=== PATIENT | male | born 1995 | race African-American/Black ===

== ENCOUNTER 2017-03-27 04:07 | Emergency (ER) | payer SELFPAY ==
[~2017-03-27] VITALS: Ht 175.3 cm; Wt 65.0 kg
[2017-03-27 04:09] VITALS: BP 142/70; PULSE 62; RESP 18; TEMP 97.7; O2SAT 99
[2017-03-27] MEDS ORDERED: SODIUM CHLOR 0.9% 1000 ML INJ 1,000 ML IV ONE (04:21)
--- NOTE | 2017-03-27 04:25 | PD ---
HPI Chief Complaint: GI Complaint Time Seen by Provider: 04:21 Travel History International Travel<30 days: No Contact w/Intl Traveler<30days: No Traveled to known affect area: No History of Present Illness HPI 21-year-old male presents to the emergency department complaint of nausea vomiting and abdominal discomfort associated with emesis. No hematemesis or coffee-ground emesis nonbilious emesis. Patient states he ate a large meal at dinnertime and shortly thereafter did not feel well and vomited a large amount of food and then subsequently has had multiple episodes of vomiting to her now he is having dry heaves and vomiting saliva. Patient also took over-the- counter medicine for nausea vomiting that is red in color but does not know of any blood that he has actually vomited. No coffee-ground emesis. Patient's had no fever or chills. Patient denies abdominal pain at this time. Patient had one loose stool. Her friend ate dinner with him and had similar food but did not eat the exact food that he ate. Otherwise no history of dietary indiscretion well water ingestion or foreign travel. Patient denies any chronic medical problems. Patient has undergone inguinal herniorrhaphy in the past and is child was treated for intussusception. Immunizations are current. [facility] Past Medical History Narrative Medical Intussusception, inguinal herniorrhaphy, occasional alcohol use; nursing notes reviewed Medical History: Denies Significant Hx Diminished Hearing: No Tetanus Vaccination: Unknown Influenza Vaccination: No Past Surgical History Other Surgery: Yes (abd hernia repair) Social History Alcohol Use: Yes (occasional) Tobacco Use: No Substance Use: No Allergies-Medications (Allergen,Severity, Reaction): Coded Allergies: No Known Allergies (Unverified , 03/27/17) Narrative Medication [id number] medicine for nausea vomiting Review of Systems Except as stated in HPI: all other systems reviewed are Neg General / Constitutional: No: Fever, Chills HENT: No: Congestion Cardiovascular: No: Chest Pain or Discomfort Respiratory: No: Shortness of Breath Gastrointestinal: Positive: Nausea, Vomiting (multiple), Diarrhea (x1), Abdominal Pain (Discomfort with vomiting otherwise no abdominal pain), No: Hematemesis, Hematochezia Genitourinary: No: Dysuria, Flank Pain Musculoskeletal: No: Myalgias, Arthralgias Skin: No Rash Neurologic: No: Weakness, Dizziness, Syncope ([place]) Psychiatric: Positive: Anxiety Hematologic/Lymphatic: No: Easy Bruising Physical Exam Narrative GENERAL: Well-developed well-nourished male no acute distress no respiratory distress. SKIN: Warm and dry. HEAD: Normocephalic. EYES: No scleral icterus. No injection or drainage. NECK: Supple, trachea midline. No JVD or lymphadenopathy. CARDIOVASCULAR: Regular rate and rhythm without murmurs, gallops, or rubs. RESPIRATORY: Breath sounds equal bilaterally. No accessory muscle use. GASTROINTESTINAL: Abdomen soft, non-tender, nondistended. MUSCULOSKELETAL: No cyanosis, or edema. BACK: Nontender without obvious deformity. No CVA tenderness. Data Data Last Documented VS Vital Signs Date Time Temp Pulse Resp B/P (MAP) Pulse Ox O2 Delivery O2 Flow Rate FiO2 03/27/17 05:43 66 16 128/68 (88) 99 Room Air 03/27/17 04:09 97.7 Orders Orders Complete Blood Count With Diff (03/27/17 04:21) Comprehensive Metabolic Panel (03/27/17 04:21) Lipase (03/27/17 04:21) Iv Access Insert/Monitor (03/27/17 04:21) Oximetry (03/27/17 04:21) Ondansetron Inj (Zofran Inj) (03/27/17 04:30) Sodium Chlor 0.9% 1000 Ml Inj (Ns 1000 M (03/27/17 04:21) Labs Laboratory Tests Test 03/27/17 04:30 White Blood Count 10.7 TH/MM3 Red Blood Count 5.56 MIL/MM3 Hemoglobin 14.9 GM/DL Hematocrit 44.5 % Mean Corpuscular Volume 80.1 FL Mean Corpuscular Hemoglobin 26.9 PG Mean Corpuscular Hemoglobin Concent 33.5 % Red Cell Distribution Width 13.2 % Platelet Count 138 TH/MM3 Mean Platelet Volume 11.3 FL Neutrophils (%) (Auto) 71.8 % Lymphocytes (%) (Auto) 20.7 % Monocytes (%) (Auto) 6.4 % Eosinophils (%) (Auto) 0.8 % Basophils (%) (Auto) 0.3 % Neutrophils # (Auto) 7.7 TH/MM3 Lymphocytes # (Auto) 2.2 TH/MM3 Monocytes # (Auto) 0.7 TH/MM3 Eosinophils # (Auto) 0.1 TH/MM3 Basophils # (Auto) 0.0 TH/MM3 CBC Comment DIFF FINAL Differential Comment Blood Urea Nitrogen 16 MG/DL Creatinine 1.01 MG/DL Random Glucose 102 MG/DL Total Protein 7.7 GM/DL Albumin 4.4 GM/DL Calcium Level 8.9 MG/DL Alkaline Phosphatase 83 U/L Aspartate Amino Transf (AST/SGOT) 18 U/L Alanine Aminotransferase (ALT/SGPT) 26 U/L Total Bilirubin 0.4 MG/DL Sodium Level 141 MEQ/L Potassium Level 3.9 MEQ/L Chloride Level 106 MEQ/L Carbon Dioxide Level 27.7 MEQ/L Anion Gap 7 MEQ/L Estimat Glomerular Filtration Rate 113 ML/MIN Lipase 144 U/L MDM Medical Decision Making Medical Screen Exam Complete: Yes Emergency Medical Condition: Yes Medical Record Reviewed: Yes Interpretation(s) CBC & BMP Diagram 03/27/17 04:30 Total Protein 7.7, Albumin 4.4, Calcium Level 8.9, Alkaline Phosphatase 83, Aspartate Amino Transf (AST/SGOT) 18, Alanine Aminotransferase (ALT/SGPT) 26, Total Bilirubin 0.4 Vital Signs Date Time Temp Pulse Resp B/P (MAP) Pulse Ox O2 Delivery O2 Flow Rate FiO2 03/27/17 05:43 66 16 128/68 (88) 99 Room Air 03/27/17 04:09 97.7 62 18 142/70 (94) 99 Differential Diagnosis Vomiting, foodborne illness, gastroenteritis, dehydration, electrolyte disturbance, atypical biliary colic, gastritis, peptic ulcer disease, colitis, atypical appendicitis Narrative Course IV access obtained patient administered 1 L normal saline along with Zofran 4 mg IV Patient feeling clinically improved desirous of oral hydration trial At 6:15 AM patient feels well tolerating oral hydration well and stable for outpatient management and advise are grossly normal range patient will be given prescription for Zofran and encouraged to follow clear liquid diet for next 1224 hrs. and advance her as tolerated Diagnosis Primary Impression: Gastroenteritis Referrals: Primary Care Physician call for appointment Patient Instructions: General Instructions Additional Instructions: Follow clear liquid diet for next 12-24 hours advance as tolerated to bland/ brat diet and regular diet avoiding fried and fatty foods Take Zofran as prescribed as needed for nausea and/or vomiting Increase fluid hydration Monitor temperature every 4 hours with thermometer to take as needed acetaminophen/Tylenol every 4 hours for fever 100.4F or greater No work or school 1 day Return to the emergency department for any concerns or change in condition Follow-up with primary care provider call office on Tuesday to schedule follow- up appointment Med/Other Pt SpecificInfo: Prescription(s) given Scripts Ondansetron Odt (Zofran Odt) 4 Mg Tab 4 MG SL Q6HR Y for Nausea/Vomiting, #10 TAB 0 Refills Prov: Kimberly Kelly MD 03/27/17 Disposition: DISCHARGE HOME Condition: Stable Kimberly Kelly MD Mar 27, 2017 04:25
[2017-03-27] MEDS ORDERED: ONDANSETRON HCL 4 MG/2 ML VIAL IV PUSH ONE (04:30)
[2017-03-27 05:00] LABS: AUTOMATED NEUTROPHIL # 7.7 TH/MM3 (1.8-7.7); BASOPHIL % 0.3 % (0.0-2.0); EOSINOPHIL # 0.1 TH/MM3 (0-0.4); EOSINOPHIL % 0.8 % (0.0-4.0); HEMATOCRIT 44.5 % (39.0-51.0); HEMOGLOBIN 14.9 GM/DL (13.0-17.0); LYMPH % 20.7 % (9.0-44.0); LYMPHOCYTE # 2.2 TH/MM3 (1.0-4.8); MEAN CELL VOLUME 80.1 FL (80.0-100.0); MEAN CORPUSCULAR HEMOGLOBIN 26.9 PG (27.0-34.0); MEAN CORPUSCULAR HGB CONC 33.5 % (32.0-36.0); MEAN PLATELET VOLUME 11.3 FL (7.0-11.0); MONO % 6.4 % (0.0-8.0); MONOCYTE # 0.7 TH/MM3 (0-0.9); NEUT % 71.8 % (16.0-70.0); PLATELET COUNT 138 TH/MM3 (150-450); RED BLOOD COUNT 5.56 MIL/MM3 (4.50-5.90); RED CELL DISTRIBUTION WIDTH 13.2 % (11.6-17.2); WHITE BLOOD COUNT 10.7 TH/MM3 (4.0-11.0)
[2017-03-27 05:43] VITALS: BP 128/68; PULSE 66; RESP 16; O2SAT 99
[2017-03-27 05:43] LABS: ALBUMIN 4.4 GM/DL (3.4-5.0); ALT (GPT) 26 U/L (12-78); AST (GOT) 18 U/L (15-37); BICARBONATE 27.7 MEQ/L (21.0-32.0); BLOOD UREA NITROGEN 16 MG/DL (7-18); CALCIUM 8.9 MG/DL (8.5-10.1); CHLORIDE 106 MEQ/L (98-107); CREATININE 1.01 MG/DL (0.60-1.30); GLOMERULAR FILTRATION RATE 113 ML/MIN (>89); GLUCOSE,RANDOM 102 MG/DL (74-106); SODIUM (NA) 141 MEQ/L (136-145)
[2017-03-27 05:46] LABS: ALKALINE PHOSPHATASE 83 U/L (45-117); TOTAL BILIRUBIN ADULT 0.4 MG/DL (0.2-1.0); TOTAL PROTEIN 7.7 GM/DL (6.4-8.2)
[2017-03-27] MEDS ORDERED: ZOFR4TAB3 SL (06:19)
== END 2017-03-27 06:31 | disposition home or self-care (01) ==
LOC: NEPC 04:07
DX: K52.9 Noninfective gastroenteritis and colitis, unspecified (principal)
CPT/HCPCS: 80053; 83690; 85025; 96361; 96374; 99284; J2405; J7030